=== PATIENT | male | born 1945 | race Caucasian/White ===

== ENCOUNTER 2023-01-01 12:30 | Outpatient (RCR) | payer OTHER, SELFPAY ==
--- NOTE | 2022-12-04 11:17 | OPREHPOC ---
Outpatient Therapy Plan of Care This is a Multidisciplinary Plan of Care that may contain components documented by all disciplines (PT, OT, and ST.) PT Problem 1 PT Problem #1 Knowledge Deficit PT Goal 1 Goal Pt to be IND with issued HEP Target Visit 8 PT Problem 2 PT Problem #2 Impaired Gait PT Goal 1 Goal Pt to ambulate without deviations on level surface . Target Visit 8 PT Goal 2 Goal Pt to improve 2 min walk distance from 400ft to 450ft Target Visit 8 PT Problem 3 PT Problem #3 Impaired Functional Mobil PT Goal 1 Goal Pt to be able to lift 10lb from ground level safely Target Visit 8 PT Goal 2 Goal Pt to demonstrate a safe floor to stand transfers to be able to work on cars at home Target Visit 8
--- NOTE | 2022-12-04 11:18 | PTOPEVAL1 ---
Assessment and note entered by Claudia Garcia, PT, DPT Evaluation Information Assessment Status Evaluation Diagnosis cerebral ventriculomegaly Subjective Information Pt states he had an increase in CSF and had a shunt put in 10 days ago. He states these symptoms started mildly 2 years ago, and within the last couple of weeks to months his symptoms increased significantly. He and his reports since his shunt was placed his symptoms have really improved . Pt states prior to the shunt he has had multiple falls in the last year, shuffled his feet, and has impaired balance. Reported Pain Level Pain Score 0: Self Report Assessment PT Clinical Summary Antonio presents to therapy today for his initial evaluation following a shunt placement d/t increased CSF. Today he demonstrates improvement in symptoms since his shunt placements but reportedly demonstrates decreased strength, balance, endurance, and functional mobility compared to his baseline. Pt will benefit from skilled therapy services to improve strength and balance and to progress towards PLOF. Plan of Care Interventions Gait Training,Hot Pack/Cold Pack,Manual Therapy, Neuro Re-education,Patient/Caregiver Educati, Therapeutic Activities,Therapeutic Exercise PT Services Indicated Yes Treatment Frequency and 2x/wk for 8 wks Duration These treatments will address the objective and functional deficits as defined above. The patient will be advanced safely and appropriately in order for the patient to progress towards his/her prior level of function. Additional exercises will be introduced and as well as a comprehensive home exercise program upon discharge, if needed, ?to ensure carryover of functional gains achieved in the clinic. This treatment plan has been reviewed and agreement upon by the patient.
--- NOTE | 2022-12-18 15:22 | OTOPDC ---
Assessment and note entered by Carol Krishnan, OT Evaluation Information Assessment Status Evaluation Diagnosis cerebral ventriculomegaly Onset over 2 years ago Subjective Information Pt. states he fell down the stairs at home about ~ 2 years ago August 2020 resulting in back injury leading to cerebral ventriculomegaly. Pt began to experience falls, loss of memory, urinary incontinence, general decline in functional mobility and capacity for independence participation in ADLs and functional transfers. Pt . had shunt placement November 24, 2022 with with improvement in symptom presentation. Pt. is concerned that magnet in previous CPAP machine may have interfered with shunt, with report of recent mild return of sympoms. Pt. has since replaced CPAP with one without magnet. Reported Pain Level Pain Score 2: Self Report Assessment OT Clinical Summary Pt. presents for initial evaluation following shunt placement 11/24/22, for cerebral ventriculomegaly. Pt. reports decrease in symptoms , and increasing return to prior level of function including overall strength, balance, coordination , memory, and capacity for independent participation in ADLs and functional transfers. Pt . displays bilateral strength and coordination within normal limits. Pt. given theraputty exercises for continued progress of finger and hand strength and dexterity. Pt. educated on benefits of continued participation and increased levels of activity with awareness of physical needs, as pt. was previously quite active. Pt. and spouse in agreement for pt. to independently continue activities which facilitate UE strengthening, coordination, and dexterity including working in his garage with friends and coin sorting. No additional skilled OT services recommended or requested at this time. Plan of Care OT Services Indicated No
--- NOTE | 2022-12-18 15:26 | OTOPEVDC ---
Assessment and note entered by Carol Krishnan OT Thank you for referring Antonio Li to [facility] An evaluation has been completed. No further treatment is needed. Evaluation Information Assessment Status Evaluation Diagnosis cerebral ventriculomegaly Onset over 2 years ago Subjective Information Pt. states he fell down the stairs at home about ~ 2 years ago August 2020 resulting in back injury leading to cerebral ventriculomegaly. Pt began to experience falls, loss of memory, urinary incontinence, general decline in functional mobility and capacity for independence participation in ADLs and functional transfers. Pt . had shunt placement November 24, 2022 with with improvement in symptom presentation. Pt. is concerned that magnet in previous CPAP machine may have interfered with shunt, with report of recent mild return of sympoms. Pt. has since replaced CPAP with one without magnet. Reported Pain Level Pain Score 2: Self Report Assessment OT Clinical Summary Pt. presents for initial evaluation following shunt placement 11/24/22, for cerebral ventriculomegaly. Pt. reports decrease in symptoms , and increasing return to prior level of function including overall strength, balance, coordination , memory, and capacity for independent participation in ADLs and functional transfers. Pt . displays bilateral strength and coordination within normal limits. Pt. given theraputty exercises for continued progress of finger and hand strength and dexterity. Pt. educated on benefits of continued participation and increased levels of activity with awareness of physical needs, as pt. was previously quite active. Pt. and spouse in agreement for pt. to independently continue activities which facilitate UE strengthening, coordination, and dexterity including working in his garage with friends and coin sorting. No additional skilled OT services recommended or requested at this time. Plan of Care Interventions Therapeutic Exercise,Neuro Re-education OT Services Indicated No
--- NOTE | 2023-01-01 13:16 | PTOPDC ---
Assessment and note entered by Claudia Garcia, PT, DPT Evaluation Information Assessment Status Discharge Diagnosis cerebral ventriculomegaly Subjective Information Pt states he is still getting some aches and pains in his ankles and legs. He states his strength, mobility, and balance have really improved since starting therapy. He states he walk in the grass on uneven ground without an issued. Pt states he has been doing lots of heavy lifting without an issues and even jogged in the driveway the other day. Reported Pain Level Pain Score 1: Self Report Assessment PT Clinical Summary Antonio presents to therapy today for his progress report following 8 visits of skilled therapy following a shunt placement d/t increased CSF. Today he demonstrates improvement gait speed, functional strength, balance, and endurance. He has met all of his therapy goals and no longer requires skilled services.
== END 2023-01-10 13:51 | disposition home or self-care (01) ==
LOC: ANHGOSHPT 12:30
DX: G93.89 Other specified disorders of brain (principal)
CPT/HCPCS: 97110; 97112; 97162; 97165; 97530; 97750

== ENCOUNTER 2024-07-26 17:29 | Emergency (ER) | payer MEDICARE, SELFPAY ==
--- NOTE | ~2024-07-26 | XR_ITS ---
XR elbow RT min 3V Ordering provider: Lucila Matthews APRN History: . injury . Comparison: None. FINDINGS: BONES: No acute fracture or dislocation. JOINT SPACES: Normal. SOFT TISSUES: Laceration is seen in the area of the proximal forearm medially. No definite joint effu clifton. IMPRESSION: No acute osseous abnormality of the right elbow. Reviewed, dictated and finalized at location A.
--- NOTE | ~2024-07-26 | XR_ITS ---
[id number] Ordering provider: Lucila Matthews APRN History: . injury . Comparison: None. FINDINGS: BONES: No acute right rib fracture or fracture of the visualized osseous structures. Prominent macho i s noted. LUNGS: No effusions or infiltrates. No pneumothorax. SOFT TISSUES: Normal. IMPRESSION: No right rib fracture Reviewed, dictated and finalized at location A. IMPRESSION: No right rib fracture
--- NOTE | 2024-07-26 17:37 | ED.WOUNDLAC ---
HPI - Wound/Laceration General Chief Complaint: Wound/Laceration Stated Complaint: R ARM LACERATION/RIB INJURY Source: patient Mode of arrival: ambulatory Limitations: no limitations History of Present Illness HPI narrative: Patient is a 79 year old male who presents to the clinic with complaints of right sided rib pain and right elbow pain with a laceration since this afternoon at 3pm. Patient fell off of his trailer this afternoon and landed on his right elbow and right ribs. He denies having any numbness, tingling, or radiation of pain. Related Data Home Medications Medication Instructions Recorded Confirmed Last Taken Type Fish Oil (with DHA-EPA) 07/26/24 Unknown History albuterol sulfate 90 mcg/actuation 2 inh inhalation QID PRN wheezing 07/26/24 07/26/24 Unknown History aerosol inhaler (Ventolin HFA) amlodipine 5 mg tablet mg 07/26/24 Unknown History atorvastatin 40 mg tablet mg 07/26/24 Unknown History celecoxib 200 mg capsule mg 07/26/24 Unknown History escitalopram oxalate 10 mg tablet mg 07/26/24 Unknown History gabapentin 300 mg capsule mg 07/26/24 Unknown History memantine 10 mg tablet mg 07/26/24 Unknown History multivitamin (Daily Multi-Vitamin 1 tablet PO DAILY 07/26/24 07/26/24 Unknown History tablet) sildenafil 100 mg tablet mg 07/26/24 Unknown History tamsulosin 0.4 mg capsule mg PO 07/26/24 Unknown History Allergies Allergy/AdvReac Type Severity Reaction Status Date / Time No Known Allergies Allergy Verified 07/26/24 17:48 Review of Systems Review of Systems: CONSTITUTIONAL: Denies body aches, fever, chills, or sweats. EYES: Denies visual changes, redness, or discharge. ENT: Denies rhinorrhea, congestion CARDIOVASCULAR: Denies chest pain, palpitations, or edema. RESPIRATORY: Denies cough or dyspnea. GASTROINTESTINAL: Denies abdominal pain, nausea, vomiting, or diarrhea. SKIN: Reports a skin laceration to the right forearm. MUSCULOSKELETAL: Denies back pain, joint pain, or myalgia. Reports right sided rib pain and right elbow pain with laceration. NEUROLOGIC: Denies headache, numbness, tingling, or weakness. All systems reviewed & are unremarkable except as noted in HPI and below PMFSH Comments At time of signature, I have reviewed and agree with nursing past medical, surgical, social and family history unless otherwise noted. Please see nursing chart for further information. There is no relevant family history pertinent to the presenting complaint. Exam Narrative: GENERAL: Well-appearing HEAD: Normocephalic, atraumatic. EYES: conjunctivae clear, and EOMI. ENT: Mucous membranes moist. Oropharynx without edema, erythema or lesions. NECK: Supple. No lymphadenopathy CHEST: Clear to auscultation. HEART: Regular rate and rhythm. SKIN: Warm, dry. Irregular superficial abrasions to the right forearm with 1 cm laceration noted. Large amount of edema extending from elbow into forearm. EXTREMITY: Right elbow has decreased strength but normal sensation, decreased range of motion with extension, but endorses pain with movement. No edema or ecchymosis, No point tenderness. No skin tenting, or obvious deformity; alignment normal, pulse palpable and equal bilaterally, skin warm, dry, pink. Capillary refill less than 3 seconds. NEURO: Alert and oriented x3. Course Course Level of Care: Express Care Visit Vital Signs Vital signs: Vital Signs Temperature 98.2 F 07/26/24 17:44 Pulse Rate 61 07/26/24 17:44 Respiratory Rate 16 07/26/24 17:44 Blood Pressure 149/84 H 07/26/24 17:44 Pulse Oximetry 98 07/26/24 17:44 Temperature 98.2 F 07/26/24 17:44 Pulse Rate 61 07/26/24 17:44 Respiratory Rate 16 07/26/24 17:44 Blood Pressure 149/84 H 07/26/24 17:44 Pulse Oximetry 98 07/26/24 17:44 Reviewed Procedures Laceration Laceration 1: Date: 07/26/24 Site: other (elbow) Side (If applicable): right ====== Skin Level ====== Skin layer closed with: dermabond and steri strips ====== Subcutaneous Layer ====== ====== Muscle Layer ====== ====== Tendon Layer ====== MDM - Wound/Laceration MDM Narrative Medical decision making narrative: Discussed physical exam findings xrays. Dermabond and Steri-Strips for laceration. Advised supportive measures and signs/symptoms to go to the ER. Pt is appropriate for outpatient treatment and follow up. Differential Diagnosis Differential diagnosis: Likely laceration, abrasion and other (fracture of right ribs, fracture of right elbow, sprain of right elbow, contusion of right ribs) Critical Care Time Critical Care Time Critical Care Time: No Discharge Plan Discharge Clinical Impression: Laceration, Elbow sprain Patient Disposition: Home Condition: Stable Instructions: Laceration (DC) Additional Instructions: The glue film will fall off in 5 to 10 days Steri-Strips will roll off on their own within 14 days Do not soak your wound. Avoid frequent or prolonged contact with water, including heavy perspiration. This may loosen the skin glue before the wound is healed. Keep the area clean and dry - cleanse with warm water and mild soap and allow to fully dry. Watch for worsening symptoms including pain, redness, swelling, streaking, pus/drainage, fever. Go to the ER with any of these symptoms or concerns. Follow up with primary care provider in 1 week as needed. Patient Language: [place] Prescriptions: New cephalexin 500 mg capsule 500 mg PO Q12H 5 Days Qty: 10 0RF No Action celecoxib 200 mg capsule atorvastatin 40 mg tablet amlodipine 5 mg tablet sildenafil 100 mg tablet tamsulosin 0.4 mg capsule PO gabapentin 300 mg capsule escitalopram oxalate 10 mg tablet memantine 10 mg tablet albuterol sulfate [Ventolin HFA] 90 mcg/actuation HFA aerosol inhaler 2 inh inhalation QID PRN (Reason: wheezing) multivitamin [Daily Multi-Vitamin] Tablet 1 tablet PO DAILY Fish Oil (with DHA-EPA) Follow-up/Referrals: Evangelina,Kaiser Lopez MD [Primary Care Provider] - Time of Disposition: 18:43
[2024-07-26 17:44] VITALS: BP 149/84; PULSE 61; RESP 16; TEMP 36.8; O2SAT 98
== END 2024-07-26 18:50 | disposition home or self-care (01) ==
PROVIDERS: PCP Internal Medicine
DX: S51.011A Laceration without foreign body of right elbow, initial encounter (principal); W17.89XA Other fall from one level to another, initial encounter; S53.401A Unspecified sprain of right elbow, initial encounter; I10 Essential (primary) hypertension; E78.00 Pure hypercholesterolemia, unspecified; N40.0 Benign prostatic hyperplasia without lower urinary tract symptoms; M19.90 Unspecified osteoarthritis, unspecified site
CPT/HCPCS: 12001; 71101; 73080; 99204; G0463